=== PATIENT | female | born 1995 | race Caucasian/White ===

== ENCOUNTER → 2023-08-13 09:25 | Outpatient (REF) | payer OTHER, SELFPAY | LOC: HWRAD 09:25 | PROVIDERS: ATTENDING PHYSICIAN Urology | DX: N30.10 Interstitial cystitis (chronic) without hematuria (principal); M62.89 Other specified disorders of muscle | CPT/HCPCS: 76770 ==

== ENCOUNTER → 2024-03-11 12:33 | Outpatient (REF) | payer OTHER, SELFPAY | LOC: HWRAD 12:33 | PROVIDERS: ATTENDING PHYSICIAN Urology | DX: N39.0 Urinary tract infection, site not specified (principal); M62.89 Other specified disorders of muscle; N30.10 Interstitial cystitis (chronic) without hematuria; R10.9 Unspecified abdominal pain | CPT/HCPCS: 74176 ==